=== PATIENT | male | born 1980 | race Caucasian/White ===

== ENCOUNTER 2023-05-27 21:07 | Inpatient (IN) ==
[~2023-05-27 21:07] MED LIST: KETAMINE HCL INJ 50 MG/ML 10 ML VIAL IV ONE; MIDAZOLAM HCL 1 MG/ML 2ML VIAL IV ONE; RAPID SEQUENCE INDUCTION BAG ONE
[2023-05-27] MEDS ORDERED: SODIUM CHLORIDE 0.9% 1,000 ML IV ONE (21:22)
--- NOTE | 2023-05-27 21:25 | Emergency Department Note ---
Impression & Plan Altered mental status, Alcohol intoxication, Agitation, Facial fracture, Elevated troponin I level ED Provider Note Provider: Alan Bell MD DATE OF SERVICE: 05/27/2023 CHIEF COMPLAINT: Agitation, altered HISTORY OF PRESENT ILLNESS: Patient is a approximately 43-year-old gentleman unknown significant history presenting via ambulance today for altered mental status. Patient upon arrival is acutely agitated being held down by EMS and police. Received call prior to arrival from EMS. Report the patient evidently walked down the street stabbed his dog to and then collapsed to the ground. For fire he was minimally responsive received 4 mg of Narcan. After this the patient became acutely agitated. Received 4 mg of benzodiazepine prior to arrival with limited improvement and he was in physical hold in handcuffs due to his acute agitation. Swearing out to the room and trying to jump up off the bed. Swears at me and does not provide any significant history. He is covered in blood but EMS states this is related to his dog that he stabbed to prior to arrival. There is report the patient may have had alcohol and possibly mushroom or other drugs involved. Patient again unable provide me additional history. He is struggling being held down with backboard in place. Questionable if he had fallen today. Did later receive a call from EMS that wrong medication administered to the patient and he did not receive Ativan prior to arrival but actually 4 mg of Dilaudid IM. May explain the lack of effect for the patient and his agitation. PAST MEDICAL HISTORY: Unable obtain due to the patient's altered mental status and acute agitation MEDICATIONS:Unable obtain due to the patient's altered mental status and acute agitation FMH:Unable obtain due to the patient's altered mental status and acute agitation SOCIAL HISTORY:Unable obtain due to the patient's altered mental status and acute agitation PHYSICAL EXAM: GENERAL: Patient being held down acutely struggling against handcuffs and backboard yelling "bitch" Head: Patient with dried blood on his face or right nasal airway in place. EYES: No injection, discharge or icterus. Pupils bilaterally reactive and dilated 6 mm bilaterally. NECK: Trachea midline. Supple. ENT: Mucous membranes pink and moist. No obvious oropharyngeal injury with poor dentition. LUNGS: Airway patent. No retractions. Breath sounds clear with good air entry bilaterally. HEART: Regular rate and rhythm. No chest wall tenderness ABDOMEN: Soft and non-tender, without guarding or rebound. SKIN: Acyanotic, warm, dry, without rashes EXTREMITIES: Severe deformities. Being held down with handcuffs in place with some irritation and redness at the wrist. NEUROLOGICAL: Struggling to move against all extremities. When asked questions answers profanities. EK bpm sinus rhythm first-degree AV block. No acute ST segment elevation or depression with a QTc of 445. CONTINUOUS CARDIAC MONITORING: was ordered and showed a heart rate of 60s-130s bpm in normal sinus rhythm to sinus tachycardia Patient's laboratory studies and imaging reviewed. Differential includes Mood disorder, infection, hypoglycemia, electrolyte abnormalities, cardiac sources, intracerebral event, toxicologic, trauma, neurologic, as well as other pathologies. IMPRESSION/MEDICAL DECISION MAKING: Patient acutely agitated and cries upon arrival struggling and violent. Per patient safety due to his aggression agitation as well as staff safety he was sedated and restrained. Initially gave 200 mg of IM ketamine into the left deltoid. IV access obtained. Patient given additional 100 mg of IV ketamine shortly thereafter for control. Transitioned from handcuffs and backboard to stretcher and hard restrained. Patient is calming. R nare RETAIL AIDE airway placed by ems removed. Unable provide any significant history. Smell of alcohol on his person and question of alcohol or other drugs may be at play. Covered in some dried blood on his face and his right calf but no evidence of significant wound questions is more related to the reported stabbing event of his dog earlier. Did respond to Narcan by report earlier as well possibly some opioid component. UDS and drug screen sent. Blood work was sent. Diaz catheter placed. Taken for CT noncontrast trauma hairston scan to look for any possible traumatic injuries or possible head injury given the limited history and his altered mental status upon arrival. Close monitoring of the patient with cardiac monitoring including end-tidal and pulse ox were maintained due to his sedation requirement. Urinalysis contaminated without signs of infection. UDS is returned positive for opiates only. Negative aspirin and Tylenol levels. Negative COVID testing. Leukocytosis I believe likely reactive and I doubt this is infectious more in the setting of his acute agitation. CK mildly elevated this time is expected probably continue to rise given his agitation. High sensitive troponin minimally elevated likely more related to exertion/agitation and demand than true ACS. EKG obtained without evidence of STEMI. Mild anion gap believe likely would have some lactate elevation but no severe electrolyte abnormality. Given some fluid hydration and some IV fluid hydration maintenance ordered. Received some additional Versed for sedation as the ketamine began to wear. End-tidal usage and O2 supplementation as needed. Did discuss with the RETAIL AIDE from the ICU given his sedation requirements. CT imaging returned without cervical spine fracture but facial CT with reported evidence of maxillary sinus and a left nondisplaced zygomatic arch fracture. Hospitalist was contacted for admission. Patient closely monitored and made various attempts at trying to discontinue restraint as possible. Repeat troponin does show increase again likely demand from his severe agitation today. Again being admitted for continued monitoring. DIAGNOSIS: Acute agitation, alcohol intoxication, altered mental status, facial fractures, elevated troponin DISPOSITION: Hospitalist will evaluate Critical Care I have personally spent 95 minutes of critical care time in the direct management of this patient. This includes bedside care, interpretation of diagnostic studies, and testing, discussion with consultants, patient, and family members, and other required patient management activities. These 95 minutes is in excess of all separately billable procedures. Past Med/Surg History Social History Smoking Status: Unknown if ever smoked Preferred Language: Jamaican Results & Data (ED) Vital Signs Vital Signs - 24 hr 05/27/23 21:17 05/27/23 21:19 05/27/23 21:20 Pulse Rate 129 H 135 H 119 H Pulse Rate [Finger] Pulse Rate from SpO2 Sensor 123 H 119 H Respiratory Rate 32 H 29 H 25 H Blood Pressure 161/110 H Blood Pressure [Right Arm] Blood Pressure Mean 127 Blood Pressure Mean [Right Arm] Pulse Oximetry 98 91 99 Oxygen Delivery Method Room Air Oxygen Flow Rate Sepsis Recent Fever Within 48 Hours No Sepsis New/Unexplained Change in Mental Status Yes Sepsis Action Taken by Nursing Physician Notified End-Tidal CO2 31 30 Oxygen Flow Rate - Titration Pulse Oximetry Post Tiitration 05/27/23 21:32 05/27/23 21:39 05/27/23 21:39 Pulse Rate 93 H 86 Pulse Rate [Finger] Pulse Rate from SpO2 Sensor 86 Respiratory Rate 19 Blood Pressure 135/83 Blood Pressure [Right Arm] Blood Pressure Mean 96 Blood Pressure Mean [Right Arm] Pulse Oximetry 99 Oxygen Delivery Method Oxygen Flow Rate Sepsis Recent Fever Within 48 Hours Sepsis New/Unexplained Change in Mental Status Sepsis Action Taken by Nursing End-Tidal CO2 29 Oxygen Flow Rate - Titration Pulse Oximetry Post Tiitration 05/27/23 21:40 05/27/23 21:41 05/27/23 21:50 Pulse Rate 87 83 Pulse Rate [Finger] Pulse Rate from SpO2 Sensor 87 83 Respiratory Rate 30 H 27 H Blood Pressure Blood Pressure [Right Arm] Blood Pressure Mean Blood Pressure Mean [Right Arm] Pulse Oximetry 99 91 99 Oxygen Delivery Method Room Air Nasal Cannula Oxygen Flow Rate 0 Sepsis Recent Fever Within 48 Hours Sepsis New/Unexplained Change in Mental Status Sepsis Action Taken by Nursing End-Tidal CO2 30 25 Oxygen Flow Rate - Titration 4 Pulse Oximetry Post Tiitration 100 05/27/23 22:00 05/27/23 22:00 05/27/23 22:00 Pulse Rate 83 Pulse Rate [Finger] 81 Pulse Rate from SpO2 Sensor 83 Respiratory Rate 24 10 L Blood Pressure 119/63 Blood Pressure [Right Arm] 119/63 Blood Pressure Mean 85 Blood Pressure Mean [Right Arm] 81 Pulse Oximetry 100 100 Oxygen Delivery Method Nasal Cannula Oxygen Flow Rate 4 Sepsis Recent Fever Within 48 Hours Sepsis New/Unexplained Change in Mental Status Sepsis Action Taken by Nursing End-Tidal CO2 32 Oxygen Flow Rate - Titration Pulse Oximetry Post Tiitration 05/27/23 22:00 05/27/23 22:10 05/27/23 22:20 Pulse Rate 111 H Pulse Rate [Finger] Pulse Rate from SpO2 Sensor 108 H 112 H Respiratory Rate 24 Blood Pressure 119/63 Blood Pressure [Right Arm] Blood Pressure Mean 85 Blood Pressure Mean [Right Arm] Pulse Oximetry 98 91 Oxygen Delivery Method Oxygen Flow Rate Sepsis Recent Fever Within 48 Hours Sepsis New/Unexplained Change in Mental Status Sepsis Action Taken by Nursing End-Tidal CO2 32 Oxygen Flow Rate - Titration Pulse Oximetry Post Tiitration 05/27/23 22:30 05/27/23 22:31 05/27/23 22:31 Pulse Rate Pulse Rate [Finger] Pulse Rate from SpO2 Sensor 120 H 98 H Respiratory Rate Blood Pressure 172/84 H Blood Pressure [Right Arm] Blood Pressure Mean 134 Blood Pressure Mean [Right Arm] Pulse Oximetry 76 L 88 L Oxygen Delivery Method Oxygen Flow Rate Sepsis Recent Fever Within 48 Hours Sepsis New/Unexplained Change in Mental Status Sepsis Action Taken by Nursing End-Tidal CO2 Oxygen Flow Rate - Titration Pulse Oximetry Post Tiitration 05/27/23 22:40 05/27/23 22:50 05/27/23 22:50 Pulse Rate 83 79 Pulse Rate [Finger] Pulse Rate from SpO2 Sensor 83 79 Respiratory Rate 13 14 Blood Pressure 136/77 Blood Pressure [Right Arm] Blood Pressure Mean 95 Blood Pressure Mean [Right Arm] Pulse Oximetry 96 97 Oxygen Delivery Method Oxygen Flow Rate Sepsis Recent Fever Within 48 Hours Sepsis New/Unexplained Change in Mental Status Sepsis Action Taken by Nursing End-Tidal CO2 21 20 Oxygen Flow Rate - Titration Pulse Oximetry Post Tiitration 05/27/23 23:00 05/27/23 23:00 05/27/23 23:10 Pulse Rate 78 94 H Pulse Rate [Finger] Pulse Rate from SpO2 Sensor 78 94 H Respiratory Rate 20 12 Blood Pressure 147/87 H Blood Pressure [Right Arm] Blood Pressure Mean 105 Blood Pressure Mean [Right Arm] Pulse Oximetry 97 98 Oxygen Delivery Method Oxygen Flow Rate Sepsis Recent Fever Within 48 Hours Sepsis New/Unexplained Change in Mental Status Sepsis Action Taken by Nursing End-Tidal CO2 18 27 Oxygen Flow Rate - Titration Pulse Oximetry Post Tiitration Laboratory Data 05/27/23 21:12 05/27/23 21:12 Lab Results 05/27/23 05/27/23 05/27/23 Range/Units 21:12 21:25 21:46 WBC 23.49 H (4.8-10.8) K/ul RBC 4.84 (4.70-6.10) M/uL Hgb 14.6 (14.0-18.0) g/dl Hct 43.0 (42.0-52.0) % MCV 88.8 (80.0-100.0) fL MCH 30.2 (25.0-34.0) pg MCHC 34.0 (32.0-36.0) g/dL RDW Std Deviation 40.5 (36.4-46.3) fL RDW Coeff of Aida 12.4 (11.5-14.5) % Plt Count 337 (130-400) K/uL MPV 9.9 (9.4-12.4) fL Immature Gran % (Auto) 0.9 % Neut % (Auto) 72.8 % Lymph % (Auto) 20.7 % [place] % (Auto) 4.1 % Eos % (Auto) 0.9 % Baso % (Auto) 0.6 % Neut # (Auto) 17.09 H (1.40-6.50) K/uL Lymph # (Auto) 4.87 H (1.20-3.40) K/uL [place] # (Auto) 0.97 H (0.11-0.59) K/uL Eos # (Auto) 0.22 (0.00-0.50) K/uL Baso # (Auto) 0.13 (0.00-0.20) K/uL Immature Gran # (Auto) 0.21 H (0.01-0.20) K/uL PT 10.9 (9.0-12.0) Seconds INR 1.0 (0.9-1.1) Sodium 137 (136-145) mmol/L Potassium 3.7 (3.5-5.1) mmol/L Chloride 99 (98-107) mmol/L Carbon Dioxide 19 L (21-32) mmol/L Anion Gap 19 H (3-11) BUN 17 (6-23) mg/dl Creatinine 1.30 (0.6-1.4) mg/dl Est Cr Clr Drug Dosing 90.1 ml/min Est GFR ( Amer) 78.6 ml/min Est GFR (Non-Af Amer) 67.8 ml/min BUN/Creatinine Ratio 13.1 (10-20) Glucose 123 H (70-99(Fasting)) mg/dl Calcium 9.0 (8.6-10.3) mg/dl Magnesium 2.4 (1.7-2.4) mg/dl Total Bilirubin 0.9 (0.2-1.0) mg/dl AST 55 H (13-39) U/L ALT 41 (7-52) U/L Alkaline Phosphatase 83 (34-104) U/L Total Creatine Kinase 678 H (30-223) U/L Troponin I High Sens 29.5 H (0-20) pg/ml Total Protein 7.1 (6.0-8.3) gm/dl Albumin 4.5 (3.4-5.0) gm/dl Globulin 2.6 (2.5-4.0) gm/dl Albumin/Globulin Ratio 1.7 (0.9-2) Lipase 27 (11-82) U/L Urine Color Yellow Urine Appearance Clear (Clear) Urine pH 5.5 (4.5-7.5) Ur Specific [place] 1.019 (1.000-1.030) Urine Protein 2+ H (Negative) Urine Glucose (UA) 1+ H (Negative) Urine Ketones Trace H (Negative) Urine Blood 2+ H (Negative) Urine Nitrite Negative (Negative) Urine Bilirubin Negative (Negative) Urine Urobilinogen Negative (Negative) Ur Leukocyte Esterase Negative (Negative) Urine WBC (Auto) 5-10 H (0-5) /hpf Urine RBC (Auto) 5-10 H (0-4) /hpf U Hyaline Cast (Auto) 10-30 H (0-5) /lpf U Epithel Cells (Auto) >30 H (0-5) /lpf Urine Bacteria (Auto) Negative (Negative) Salicylates < 3.0 L (3.0-30) mg/dl Urine Opiates Screen Pos H (Neg) Ur Methadone, Qual Neg (Neg) Acetaminophen < 3 L (10-30) ug/ml Urine Barbiturates Neg (Neg) Ur Phencyclidine (PCP) Neg (Neg) U Amphetamin/Meth Scrn Neg (Neg) MDMA (Ecstasy) Screen Neg (Neg) U Benzodiazepines Scrn Neg (Neg) Ur Cocaine Metabolite Neg (Neg) U Marijuana (THC) Screen Neg (Neg) Ethyl Alcohol mg/dL 162.9 H (<10.0) mg/dl SARS-CoV-2, RNA, NAAT NEGATIVE (NEGATIVE) Administered Medications Parenteral Electrolytes (Plasma-Lyte A Ph 7.4) 1,000 mls @ 125 mls/hr IV .Q8H KENAN Stop: 06/26/23 23:29 Last Admin: 05/27/23 23:32 Dose: 125 mls/hr Documented By: AB Discontinued Medications Sodium Chloride (Nss) 500 mls @ 999 mls/hr IV .Q31M KENAN Stop: 05/27/23 22:00 Last Infusion: 05/27/23 22:34 Dose: Infused Documented By: Admin: 05/27/23 21:46 Dose: 999 mls/hr Documented By: VIOLET Sodium Chloride (Nss) 1,000 mls @ 999 mls/hr IV .Q1H1M ONE Stop: 05/27/23 22:22 Last Admin: 05/27/23 21:46 Dose: 999 mls/hr Documented By: VIOLET Midazolam HCl (Midazolam Hcl 5 Mg/Ml 2ml Vial) 2 mg IV ONCE ONE Stop: 05/27/23 22:28 Last Admin: 05/27/23 22:27 Dose: 2 mg Documented By: VIOLET Miscellaneous (Rapid Sequence Induction Bag) Confirm Administered Dose 1 each N/A .STK-MED ONE Stop: 05/27/23 21:00 Last Admin: 05/27/23 23:36 Dose: Not Given Documented By: AB Imaging Data Radiologist's Impression: Cervical Spine CT 05/27/23 21:19 Exam(s): CT C SPINE EXAM: CT Cervical Spine Without Intravenous Contrast CLINICAL HISTORY: Reason for exam: ams, ?fall. TECHNIQUE: Axial computed tomography images of the cervical spine without intravenous contrast. CTDI is 26.96 mGy and DLP is 765.4 mGy-cm. Automated exposure control was utilized for the study. A dose lowering technique was utilized adhering to the principles of ALARA. COMPARISON: No relevant prior studies available. FINDINGS: The vertebral body heights are maintained. The craniocervical junction is intact. The atlanto-dens interval is maintained. The dens is intact. There is no spondylolisthesis. Multilevel cervical spondylosis and degenerative disc disease. Straightening of the cervical lordosis. The unenhanced neck soft tissues are grossly unremarkable. The visualized lung apices are grossly clear. IMPRESSION: No acute fracture or subluxation of the cervical spine. Electronically signed by: Ronnie Sotelo MD 05/27/23 23:[address] 05/27/23 21:19 Exam(s): CT FACIAL Without Contrast EXAM: CT Maxillofacial Without Intravenous Contrast CLINICAL HISTORY: Reason for exam: ams, ?fall. TECHNIQUE: Axial computed tomography images of the face without intravenous contrast. CTDI is 36.55 mGy and DLP is 624.41 mGy-cm. Automated exposure control was utilized for the study. A dose lowering technique was utilized adhering to the principles of ALARA. COMPARISON: No relevant prior studies available. FINDINGS: The mandible is intact. Intact maxillary alveolus. The orbital rims and floors are intact. The intraorbital contents are grossly unremarkable. Mildly depressed fracture of the anterior wall of the left maxillary sinus. Nondisplaced fracture of the posterior wall of the left maxillary sinus. Nondisplaced fracture of the left zygomatic arch. Intact nasal bones, nasal septum, and maxillary spines. Paranasal sinus mucosal thickening. IMPRESSION: Mildly depressed fracture of the anterior wall of the left maxillary sinus. Nondisplaced fracture of the posterior wall of the left maxillary sinus. Nondisplaced fracture of the left zygomatic arch. Electronically signed by: Ronnie Sotelo MD 05/27/23 23:[address] 05/27/23 21:19 Exam(s): CT HEAD Without Contrast EXAM: CT Head Without Intravenous Contrast CLINICAL HISTORY: Reason for exam: ams. TECHNIQUE: Axial computed tomography images of the head/brain without intravenous contrast. CTDI is 36.55 mGy and DLP is 624.41 mGy-cm. Automated exposure control was utilized for the study. A dose lowering technique was utilized adhering to the principles of ALARA. COMPARISON: No relevant prior studies available. FINDINGS: No acute intracranial hemorrhage. No midline shift or mass effect. The territorial coates-white matter differentiation is maintained throughout. The ventricles and sulci are commensurate with age. The visualized orbits appear grossly unremarkable. The calvarium is intact. The visualized paranasal sinuses and mastoid air cells are grossly clear. Left-sided facial bone fractures, correlate with concomitant maxillofacial CT scan. IMPRESSION: No acute intracranial hemorrhage, midline shift, or mass effect. Left-sided facial bone fractures, correlate with concomitant maxillofacial CT scan. Electronically signed by: Ronnie Sotelo MD 05/27/23 23:45 PM Discharge Plan Visit Data Chief Complaint: Altered Mental Status Stated Complaint: ALCOHOL POSSIBLE OTHER DRUGS ED Provider: Alan Bell Discharge Problem: Altered mental status, Alcohol intoxication, Agitation, Facial fracture, Elevated troponin I level Patient Disposition: Being Evaluated by Hospitalist Forms Stand Alone Forms: [facility] Referrals Referrals: PCP,NO [Primary Care Provider] - Discharge Problem: Altered mental status Qualifiers: Altered mental status type: delirium Qualified Code(s): R41.0 - Disorientation, unspecified Alcohol intoxication Qualifiers: Complication of substance-induced condition: with delirium Qualified Code(s): F 10.921 - Alcohol use, unspecified with intoxication delirium
[2023-05-27] MEDS ORDERED: SODIUM CHLORIDE 0.9% 500 ML IV SCH (21:30)
[2023-05-27 21:52] LABS: Appearance Urine Clear (Clear); Bacteria Urine Automated Negative (Negative); Bilirubin Urine Negative (Negative); Blood Urine 2+ (Negative); Color Urine Yellow; Epithelial Cell Urine Auto >30 /lpf (0-5); Glucose Urine UA 1+ (Negative); Ketones Urine Trace (Negative); Leukocyte Esterase Urine Negative (Negative); Nitrite Urine Negative (Negative); Protein Urine 2+ (Negative); Specific Gravity Urine 1.019 (1.000-1.030); Urobilinogen Urine Negative (Negative); pH Urine 5.5 (4.5-7.5)
[2023-05-27 22:01] LABS: Amphetamines+Metham, Urine Neg (Neg); Barbiturates, Urine Neg (Neg); Benzodiazepine, Urine Neg (Neg); Cocaine, Urine Neg (Neg); MDMA (Ecstacy), Urine Neg (Neg); Marijuana, Urine Neg (Neg); Methadone, Urine Neg (Neg); Opiate, Urine Pos (Neg); Phencyclidine, Urine Neg (Neg)
[2023-05-27 22:09] LABS: Acetaminophen < 3 ug/ml (10-30); Salicylate < 3.0 mg/dl (3.0-30)
[2023-05-27 22:17] LABS: Basophils # (auto) 0.13 K/uL (0.00-0.20); Basophils % (auto) 0.6 %; Eosinophils # (auto) 0.22 K/uL (0.00-0.50); Eosinophils % (auto) 0.9 %; Hemoglobin 14.6 g/dl (14.0-18.0); Immature Granulocytes # (auto) 0.21 K/uL (0.01-0.20); Immature Granulocytes % (auto) 0.9 %; Lymphocytes # (auto) 4.87 K/uL (1.20-3.40); Lymphocytes % (auto) 20.7 %; Mean Corpuscular Hemoglobin 30.2 pg (25.0-34.0); Mean Corpuscular Volume 88.8 fL (80.0-100.0); Mean Platelet Volume 9.9 fL (9.4-12.4); Monocytes # (auto) 0.97 K/uL (0.11-0.59); Monocytes % (auto) 4.1 %; Neutrophils # (auto) 17.09 K/uL (1.40-6.50); Neutrophils % (auto) 72.8 %; Platelet Count 337 K/uL (130-400); RDW Coefficient of Variation 12.4 % (11.5-14.5); RDW Standard Deviation 40.5 fL (36.4-46.3); Red Blood Count 4.84 M/uL (4.70-6.10); White Blood Count 23.49 K/ul (4.8-10.8)
[2023-05-27 22:22] LABS: Albumin Globulin Ratio 1.7 (0.9-2); Albumin Level 4.5 gm/dl (3.4-5.0); BUN Creatinine Ratio 13.1 (10-20); Bilirubin,Total 0.9 mg/dl (0.2-1.0); Creatinine Clr Calc Pharmacy 90.1 ml/min; Est GFR (African American) 78.6 ml/min; Est GFR (Non-African American) 67.8 ml/min; Globulin 2.6 gm/dl (2.5-4.0); Magnesium 2.4 mg/dl (1.7-2.4); Potassium 3.7 mmol/L (3.5-5.1); Total Protein 7.1 gm/dl (6.0-8.3)
[2023-05-27] MEDS ORDERED: MIDAZOLAM HCL 5 MG/ML 2ML VIAL IV ONE (22:27)
[2023-05-27 22:28] LABS: Troponin I High Sensitivity 29.5 pg/ml (0-20)
[2023-05-27 22:37] LABS: Prothrombin Time 10.9 Seconds (9.0-12.0)
[2023-05-27] MEDS ORDERED: PLASMA-LYTE A 1,000 ML IV SCH (23:30)
--- NOTE | 2023-05-27 23:45 | CT Scan Report ---
Exam(s): CT FACIAL Without Contrast EXAM: CT Maxillofacial Without Intravenous Contrast CLINICAL HISTORY: Reason for exam: ams, ?fall. TECHNIQUE: Axial computed tomography images of the face without intravenous contrast. CTDI is 36.55 mGy and DLP is 624.41 mGy-cm. Automated exposure control was utilized for the study. A dose lowering technique was utilized adhering to the principles of ALARA. COMPARISON: No relevant prior studies available. FINDINGS: The mandible is intact. Intact maxillary alveolus. The orbital rims and floors are intact. The intraorbital contents are grossly unremarkable. Mildly depressed fracture of the anterior wall of the left maxillary sinus. Nondisplaced fracture of the posterior wall of the left maxillary sinus. Nondisplaced fracture of the left zygomatic arch. Intact nasal bones, nasal septum, and maxillary spines. Paranasal sinus mucosal thickening. IMPRESSION: Mildly depressed fracture of the anterior wall of the left maxillary sinus. Nondisplaced fracture of the posterior wall of the left maxillary sinus. Nondisplaced fracture of the left zygomatic arch. Electronically signed by: Ronnie Sotelo MD 05/27/23 23:44 PM
--- NOTE | 2023-05-27 23:46 | CT Scan Report ---
Exam(s): CT HEAD Without Contrast EXAM: CT Head Without Intravenous Contrast CLINICAL HISTORY: Reason for exam: ams. TECHNIQUE: Axial computed tomography images of the head/brain without intravenous contrast. CTDI is 36.55 mGy and DLP is 624.41 mGy-cm. Automated exposure control was utilized for the study. A dose lowering technique was utilized adhering to the principles of ALARA. COMPARISON: No relevant prior studies available. FINDINGS: No acute intracranial hemorrhage. No midline shift or mass effect. The territorial coates-white matter differentiation is maintained throughout. The ventricles and sulci are commensurate with age. The visualized orbits appear grossly unremarkable. The calvarium is intact. The visualized paranasal sinuses and mastoid air cells are grossly clear. Left-sided facial bone fractures, correlate with concomitant maxillofacial CT scan. IMPRESSION: No acute intracranial hemorrhage, midline shift, or mass effect. Left-sided facial bone fractures, correlate with concomitant maxillofacial CT scan. Electronically signed by: Ronnie Sotelo MD 05/27/23 23:45 PM
--- NOTE | 2023-05-27 23:49 | CT Scan Report ---
Exam(s): CT C SPINE EXAM: CT Cervical Spine Without Intravenous Contrast CLINICAL HISTORY: Reason for exam: ams, ?fall. TECHNIQUE: Axial computed tomography images of the cervical spine without intravenous contrast. CTDI is 26.96 mGy and DLP is 765.4 mGy-cm. Automated exposure control was utilized for the study. A dose lowering technique was utilized adhering to the principles of ALARA. COMPARISON: No relevant prior studies available. FINDINGS: The vertebral body heights are maintained. The craniocervical junction is intact. The atlanto-dens interval is maintained. The dens is intact. There is no spondylolisthesis. Multilevel cervical spondylosis and degenerative disc disease. Straightening of the cervical lordosis. The unenhanced neck soft tissues are grossly unremarkable. The visualized lung apices are grossly clear. IMPRESSION: No acute fracture or subluxation of the cervical spine. Electronically signed by: Ronnie Sotelo MD 05/27/23 23:48 PM
--- NOTE | 2023-05-28 | CT Scan Report ---
Exam(s): CT ABDOMEN + PELVIS Without Contrast EXAM: CT Abdomen and Pelvis Without Intravenous Contrast CLINICAL HISTORY: Reason for exam: ams, ?fall. TECHNIQUE: Axial computed tomography images of the abdomen and pelvis without intravenous contrast. CTDI is 32.94 mGy and DLP is 1739.1 mGy-cm. Automated exposure control was utilized for the study. A dose lowering technique was utilized adhering to the principles of ALARA. COMPARISON: No relevant prior studies available. FINDINGS: Lung bases: Unremarkable. No mass. No consolidation. ABDOMEN: Liver: Unremarkable. Gallbladder and bile ducts: Prior cholecystectomy with mild CBD dilatation. Pancreas: Unremarkable. No ductal dilation. Spleen: Unremarkable. No splenomegaly. Adrenals: Unremarkable. No mass. Kidneys and ureters: Unremarkable. No obstructing stones. No hydronephrosis. Stomach and bowel: Unremarkable. No obstruction. No mucosal thickening. PELVIS: Appendix: No findings to suggest acute appendicitis. Bladder: Diaz catheter within the urinary bladder. No stones. Reproductive: Unremarkable as visualized. ABDOMEN and PELVIS: Intraperitoneal space: Unremarkable. No free air. No significant fluid collection. Bones/joints: Moderate degenerative changes at L4/L5 and L5/S1. No acute fracture. No dislocation. Soft tissues: Unremarkable. Vasculature: Unremarkable. No abdominal aortic aneurysm. Lymph nodes: Unremarkable. No enlarged lymph nodes. IMPRESSION: No acute findings in the abdomen or pelvis. Electronically signed by: Mary Ellen Mckenzie MD 05/28/23 00:00 AM
--- NOTE | 2023-05-28 00:03 | CT Scan Report ---
Exam(s): CT CHEST Without Contrast EXAM: CT Chest Without Intravenous Contrast CLINICAL HISTORY: Reason for exam: AMS, fall?. TECHNIQUE: Axial computed tomography images of the chest without intravenous contrast. CTDI is 32.94 mGy and DLP is 1739.1 mGy-cm. Automated exposure control was utilized for the study. A dose lowering technique was utilized adhering to the principles of ALARA. COMPARISON: No relevant prior studies available. FINDINGS: Lungs: Unremarkable. No mass. No consolidation. Pleural space: Unremarkable. No pneumothorax. No significant effusion. Heart: Unremarkable. No cardiomegaly. No significant pericardial effusion. No significant coronary artery calcifications. Thyroid: Left jessica-thyroidectomy. Bones/joints: Unremarkable. No acute fracture. No dislocation. Soft tissues: Unremarkable. Vasculature: Unremarkable. No thoracic aortic aneurysm. Lymph nodes: Unremarkable. No enlarged lymph nodes. Gallbladder and bile ducts: Cholecystectomy clips. IMPRESSION: No acute findings in the chest. Electronically signed by: Ronnie Sotelo MD 05/28/23 00:02 AM
[2023-05-28] MEDS ORDERED: HYDROmorphone INJ 2 MG/ML SYR/VIAL ONE (02:10)
[2023-05-28] MEDS ORDERED: LORazepam 1 MG TAB PO STA (05:32)
--- NOTE | 2023-05-28 05:42 | History & Physical Report ---
Date of Service May 28, 2023 Assessment & Plan (1) Agitation: Plan: 43-year-old male history of insomnia as per patient was brought in because of altered mental status. Seems patient walked on the street and stabbed his dog to and then collapsed to the ground. EMS gave him 4 mg of Narcan after that patient became acutely agitated. Then was given 4 mg of benzodiazepine and is brought in physical hold with handcuffs due to acute agitation. In the ER he also was very agitated. He was given couple of doses of ketamine in the ER and placed in restraints. 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 DVT prophylaxis SCDs for now Disposition Telemetry floor Full code History of Present Illness Chief Complaint: Agitation. Alcoholism and drug abuse Primary Care Provider: NO PCP 43-year-old male history of insomnia as per patient was brought in because of altered mental status. Seems patient walked on the street and stabbed his dog to and then collapsed to the ground. EMS gave him 4 mg of Narcan after that patient became acutely agitated. Then was given 4 mg of benzodiazepine and is brought in physical hold in hand cuffs due to acute agitation. In the ER he also was very agitated. He was given couple of doses of ketamine in the ER and placed in restraints.Imaging studies are okay. Patient currently alert and awake and oriented. Patient states he drank 12 beers and had mushroom for drugs. He states he did not do mushrooms for many years. Not doing any other drugs as per patient. He is on buprenorphine as is used to do kratom as per patient. Says his Diaz catheter is irritating and wants to take it out. Denies any headache currently. Vision is okay. No cough. No chest pain or shortness of breath. No nausea. No abdominal pain. Currently resting comfortably. Past medical history as mentioned above Past surgical history. Denies any surgeries Social history. Denies smoking. Says drinks alcohol couple of times a week. States once in a while uses drugs like mushrooms Family history. Denies any family history. Allergies Allergy/AdvReac Type Severity Reaction Status Date / Time No Known Allergies Allergy Unverified 05/28/23 00:24 Home Medications Medication Instructions Recorded Confirmed Type buprenorphine HCl 8 mg sublingual 16 mg sublingual DAILY 05/28/23 05/28/23 History tablet mirtazapine 15 mg tablet 15 mg PO DAILY 05/28/23 05/28/23 History sildenafil 100 mg tablet 50 - 100 mg PO DIRECTED 05/28/23 05/28/23 History Past Med/Surg History Social History Smoking Status: Current some day smoker Tobacco Type: Cigarettes Hx Alcohol Use: Yes Alcohol type: beer Preferred Language: [place] Communication Ability: Effective Test And Turn Up Technician Required: No Beliefs That Will Affect Care: None Current Living Situation: Significant Other Feels Safe at Home: Yes Review of Systems Review of Systems: All systems reviewed & are unremarkable except as noted in HPI & below Physical Exam Physical Exam: General- Not in acute distress Head- atraumatic Eyes- PERRL. ENT- oropharynx clear Neck- supple, no JVD. Lungs- clear to auscultation, no wheezing or crackles. Heart- regular rhythm; no murmur, no gallop. Abdomen- normal bowel sounds, soft, nontender, no distension. Extremities- no pretibial edema, no erythema seen. Neuro- alert, oriented x 3; PERRL,no facial palsy; no dysarthria; obeys commands , moves extremities. Skin- warm & dry Results & Data Results & Data Vital Signs (Past 12 Hours) Vital Signs Pulse Pulse Resp BP BP Pulse Ox O2 Del Method 05/28/23 05:00 79 16 138/79 95 Room Air 05/28/23 04:00 71 18 119/70 93 Room Air 05/28/23 02:50 75 16 97 05/28/23 02:44 142/85 H 05/28/23 02:44 81 19 95 05/28/23 02:40 73 20 96 05/28/23 02:30 78 23 98 05/28/23 02:20 73 20 96 05/28/23 02:10 74 96 05/28/23 02:00 78 97 05/28/23 02:00 140/73 05/28/23 02:00 140/73 05/28/23 01:50 76 97 05/28/23 01:40 83 96 05/28/23 01:32 72 05/28/23 01:30 109/70 05/28/23 01:30 69 96 05/28/23 01:20 76 97 05/28/23 01:10 72 96 05/28/23 01:00 78 96 05/28/23 01:00 108/76 05/28/23 00:50 78 98 05/28/23 00:40 84 97 05/28/23 00:30 123/75 05/28/23 00:30 74 97 05/28/23 00:20 75 95 05/28/23 00:10 84 95 05/28/23 00:00 150/91 H 05/28/23 00:00 72 96 05/27/23 23:50 90 92 05/27/23 23:40 96 05/27/23 23:30 82 96 05/27/23 23:30 152/95 H 05/27/23 23:26 150/92 H 05/27/23 23:26 88 95 05/27/23 23:20 94 H 96 05/27/23 23:10 94 H 12 98 05/27/23 23:00 147/87 H 05/27/23 23:00 78 20 97 05/27/23 22:50 136/77 05/27/23 22:50 79 14 97 05/27/23 22:40 83 13 96 05/27/23 22:31 172/84 H 05/27/23 22:31 88 L 05/27/23 22:30 76 L 05/27/23 22:20 91 05/27/23 22:10 111 H 24 98 05/27/23 22:00 119/63 05/27/23 22:00 119/63 05/27/23 22:00 83 10 L 100 05/27/23 22:00 81 24 119/63 100 Nasal Cannula 05/27/23 21:50 83 27 H 99 05/27/23 21:41 91 Room Air, Nasal Cannula 05/27/23 21:40 87 30 H 99 05/27/23 21:39 135/83 05/27/23 21:39 86 19 99 05/27/23 21:32 93 H 05/27/23 21:20 119 H 25 H 99 05/27/23 21:19 135 H 29 H 161/110 H 91 Room Air 05/27/23 21:17 129 H 32 H 98 O2 Flow Rate 05/28/23 05:00 05/28/23 04:00 05/28/23 02:50 05/28/23 02:44 05/28/23 02:44 05/28/23 02:40 05/28/23 02:30 05/28/23 02:20 05/28/23 02:10 05/28/23 02:00 05/28/23 02:00 05/28/23 02:00 05/28/23 01:50 05/28/23 01:40 05/28/23 01:32 05/28/23 01:30 05/28/23 01:30 05/28/23 01:20 05/28/23 01:10 05/28/23 01:00 05/28/23 01:00 05/28/23 00:50 05/28/23 00:40 05/28/23 00:30 05/28/23 00:30 05/28/23 00:20 05/28/23 00:10 05/28/23 00:00 05/28/23 00:00 05/27/23 23:50 05/27/23 23:40 05/27/23 23:30 05/27/23 23:30 05/27/23 23:26 05/27/23 23:26 05/27/23 23:20 05/27/23 23:10 05/27/23 23:00 05/27/23 23:00 05/27/23 22:50 05/27/23 22:50 05/27/23 22:40 05/27/23 22:31 05/27/23 22:31 05/27/23 22:30 05/27/23 22:20 05/27/23 22:10 05/27/23 22:00 05/27/23 22:00 05/27/23 22:00 05/27/23 22:00 4 05/27/23 21:50 05/27/23 21:41 0 05/27/23 21:40 05/27/23 21:39 05/27/23 21:39 05/27/23 21:32 05/27/23 21:20 05/27/23 21:19 05/27/23 21:17 Diagnostic Findings Laboratory Results WBC 23.49 K/ul (4.8-10.8) H 05/27/23 21:12 RBC 4.84 M/uL (4.70-6.10) 05/27/23 21:12 Hgb 14.6 g/dl (14.0-18.0) 05/27/23 21:12 Hct 43.0 % (42.0-52.0) 05/27/23 21:12 MCV 88.8 fL (80.0-100.0) 05/27/23 21:12 MCH 30.2 pg (25.0-34.0) 05/27/23 21:12 MCHC 34.0 g/dL (32.0-36.0) 05/27/23 21:12 RDW Std Deviation 40.5 fL (36.4-46.3) 05/27/23 21:12 RDW Coeff of Aida 12.4 % (11.5-14.5) 05/27/23 21:12 Plt Count 337 K/uL (130-400) 05/27/23 21:12 MPV 9.9 fL (9.4-12.4) 05/27/23 21:12 Immature Gran % (Auto) 0.9 % 05/27/23 21:12 Neut % (Auto) 72.8 % 05/27/23 21:12 Lymph % (Auto) 20.7 % 05/27/23 21:12 Dixie % (Auto) 4.1 % 05/27/23 21:12 Eos % (Auto) 0.9 % 05/27/23 21:12 Baso % (Auto) 0.6 % 05/27/23 21:12 Neut # (Auto) 17.09 K/uL (1.40-6.50) H 05/27/23 21:12 Lymph # (Auto) 4.87 K/uL (1.20-3.40) H 05/27/23 21:12 Dixie # (Auto) 0.97 K/uL (0.11-0.59) H 05/27/23 21:12 Eos # (Auto) 0.22 K/uL (0.00-0.50) 11/25/23 21:12 Baso # (Auto) 0.13 K/uL (0.00-0.20) 05/27/23 21:12 Immature Gran # (Auto) 0.21 K/uL (0.01-0.20) H 05/27/23 21:12 PT 10.9 Seconds (9.0-12.0) 05/27/23 21:12 INR 1.0 (0.9-1.1) 05/27/23 21:12 Sodium 137 mmol/L (136-145) 05/27/23 21:12 Potassium 3.7 mmol/L (3.5-5.1) 05/27/23 21:12 Chloride 99 mmol/L (98-107) 05/27/23 21:12 Carbon Dioxide 19 mmol/L (21-32) L 05/27/23 21:12 Anion Gap 19 (3-11) H 05/27/23 21:12 BUN 17 mg/dl (6-23) 05/27/23 21:12 Creatinine 1.30 mg/dl (0.6-1.4) 05/27/23 21:12 Est Cr Clr Drug Dosing 90.1 ml/min 05/27/23 21:12 Est GFR ( Amer) 78.6 ml/min 05/27/23 21:12 Est GFR (Non-Af Amer) 67.8 ml/min 05/27/23 21:12 BUN/Creatinine Ratio 13.1 (10-20) 05/27/23 21:12 Glucose 123 mg/dl (70-99(Fasting)) H 05/27/23 21:12 Calcium 9.0 mg/dl (8.6-10.3) 05/27/23 21:12 Magnesium 2.4 mg/dl (1.7-2.4) 05/27/23 21:12 Total Bilirubin 0.9 mg/dl (0.2-1.0) 05/27/23 21:12 AST 55 U/L (13-39) H 05/27/23 21:12 ALT 41 U/L (7-52) 05/27/23 21:12 Alkaline Phosphatase 83 U/L (34-104) 05/27/23 21:12 Total Creatine Kinase 678 U/L (30-223) H 05/27/23 21:12 Troponin I High Sens 176.1 pg/ml (0-20) H* D 05/27/23 23:20 Total Protein 7.1 gm/dl (6.0-8.3) 05/27/23 21:12 Albumin 4.5 gm/dl (3.4-5.0) 05/27/23 21:12 Globulin 2.6 gm/dl (2.5-4.0) 05/27/23 21:12 Albumin/Globulin Ratio 1.7 (0.9-2) 05/27/23 21:12 Lipase 27 U/L (11-82) 05/27/23 21: Urine Color Yellow 05/27/23 21: Urine Appearance Clear (Clear) 05/27/23 21: Urine pH 5.5 (4.5-7.5) 05/27/23 21: Ur Specific Wilson 1.019 (1.000-1.030) 05/27/23 21: Urine Protein 2+ (Negative) H 05/27/23 21: Urine Glucose (UA) 1+ (Negative) H 05/27/23 21:25 Urine Ketones Trace (Negative) H 05/27/23 21: Urine Blood 2+ (Negative) H 05/27/23 21: Urine Nitrite Negative (Negative) 05/27/23: Urine Bilirubin Negative (Negative) 05/27/23 21: Urine Urobilinogen Negative (Negative) 05/27/23 21:25 Ur Leukocyte Esterase Negative (Negative) 05/27/23 21:25 Urine WBC (Auto) 5-10 /hpf (0-5) H 05/27/23 21:25 Urine RBC (Auto) 5-10 /hpf (0-4) H 05/27/23 21: U Hyaline Cast (Auto) 10-30 /lpf (0-5) H 05/27/23 21: U Epithel Cells (Auto) >30 /lpf (0-5) H 05/27/23 21:25 Urine Bacteria (Auto) Negative (Negative) 05/27/23 21: Salicylates < 3.0 mg/dl (3.0-30) L 05/27/23 21:12 Urine Opiates Screen Pos (Neg) H 05/27/23 21:25 Ur Methadone, Qual Neg (Neg) 05/27/23 21:25 Acetaminophen < 3 ug/ml (10-30) L 05/27/23 21:12 Urine Barbiturates Neg (Neg) 05/27/23 21:25 Ur Phencyclidine (PCP) Neg (Neg) 05/27/23 21:25 U Amphetamin/Meth Scrn Neg (Neg) 05/27/23 21:25 MDMA (Ecstasy) Screen Neg (Neg) 05/27/23 21:25 U Benzodiazepines Scrn Neg (Neg) 05/27/23 21:25 Ur Cocaine Metabolite Neg (Neg) 05/27/23 21:25 U Marijuana (THC) Screen Neg (Neg) 05/27/23 21:25 Ethyl Alcohol mg/dL 162.9 mg/dl (<10.0) H 05/27/23 21:12 SARS-CoV-2, RNA, NAAT NEGATIVE (NEGATIVE) 05/27/23 21:46 Impressions Abdomen/Pelvis CT 05/27/23 21:19 Exam(s): CT ABDOMEN + PELVIS Without Contrast EXAM: CT Abdomen and Pelvis Without Intravenous Contrast CLINICAL HISTORY: Reason for exam: ams, ?fall. TECHNIQUE: Axial computed tomography images of the abdomen and pelvis without intravenous contrast. CTDI is 32.94 mGy and DLP is 1739.1 mGy-cm. Automated exposure control was utilized for the study. A dose lowering technique was utilized adhering to the principles of ALARA. COMPARISON: No relevant prior studies available. FINDINGS: Lung bases: Unremarkable. No mass. No consolidation. ABDOMEN: Liver: Unremarkable. Gallbladder and bile ducts: Prior cholecystectomy with mild CBD dilatation. Pancreas: Unremarkable. No ductal dilation. Spleen: Unremarkable. No splenomegaly. Adrenals: Unremarkable. No mass. Kidneys and ureters: Unremarkable. No obstructing stones. No hydronephrosis. Stomach and bowel: Unremarkable. No obstruction. No mucosal thickening. PELVIS: Appendix: No findings to suggest acute appendicitis. Bladder: Diaz catheter within the urinary bladder. No stones. Reproductive: Unremarkable as visualized. ABDOMEN and PELVIS: Intraperitoneal space: Unremarkable. No free air. No significant fluid collection. Bones/joints: Moderate degenerative changes at L4/L5 and L5/S1. No acute fracture. No dislocation. Soft tissues: Unremarkable. Vasculature: Unremarkable. No abdominal aortic aneurysm. Lymph nodes: Unremarkable. No enlarged lymph nodes. IMPRESSION: No acute findings in the abdomen or pelvis. Electronically signed by: Mary Ellen Mckenzie MD 05/28/23 00:[address] 05/27/23 21:19 Exam(s): CT C SPINE EXAM: CT Cervical Spine Without Intravenous Contrast CLINICAL HISTORY: Reason for exam: ams, ?fall. TECHNIQUE: Axial computed tomography images of the cervical spine without intravenous contrast. CTDI is 26.96 mGy and DLP is 765.4 mGy-cm. Automated exposure control was utilized for the study. A dose lowering technique was utilized adhering to the principles of ALARA. COMPARISON: No relevant prior studies available. FINDINGS: The vertebral body heights are maintained. The craniocervical junction is intact. The atlanto-dens interval is maintained. The dens is intact. There is no spondylolisthesis. Multilevel cervical spondylosis and degenerative disc disease. Straightening of the cervical lordosis. The unenhanced neck soft tissues are grossly unremarkable. The visualized lung apices are grossly clear. IMPRESSION: No acute fracture or subluxation of the cervical spine. Electronically signed by: Ronnie Sotelo MD 05/27/23 23:[address] 05/27/23 21:19 Exam(s): CT CHEST Without Contrast EXAM: CT Chest Without Intravenous Contrast CLINICAL HISTORY: Reason for exam: AMS, fall?. TECHNIQUE: Axial computed tomography images of the chest without intravenous contrast. CTDI is 32.94 mGy and DLP is 1739.1 mGy-cm. Automated exposure control was utilized for the study. A dose lowering technique was utilized adhering to the principles of ALARA. COMPARISON: No relevant prior studies available. FINDINGS: Lungs: Unremarkable. No mass. No consolidation. Pleural space: Unremarkable. No pneumothorax. No significant effusion. Heart: Unremarkable. No cardiomegaly. No significant pericardial effusion. No significant coronary artery calcifications. Thyroid: Left jessica-thyroidectomy. Bones/joints: Unremarkable. No acute fracture. No dislocation. Soft tissues: Unremarkable. Vasculature: Unremarkable. No thoracic aortic aneurysm. Lymph nodes: Unremarkable. No enlarged lymph nodes. Gallbladder and bile ducts: Cholecystectomy clips. IMPRESSION: No acute findings in the chest. Electronically signed by: Ronnie Sotelo MD 05/28/23 00:[address] 05/27/23 21:19 Exam(s): CT FACIAL Without Contrast EXAM: CT Maxillofacial Without Intravenous Contrast CLINICAL HISTORY: Reason for exam: ams, ?fall. TECHNIQUE: Axial computed tomography images of the face without intravenous contrast. CTDI is 36.55 mGy and DLP is 624.41 mGy-cm. Automated exposure control was utilized for the study. A dose lowering technique was utilized adhering to the principles of ALARA. COMPARISON: No relevant prior studies available. FINDINGS: The mandible is intact. Intact maxillary alveolus. The orbital rims and floors are intact. The intraorbital contents are grossly unremarkable. Mildly depressed fracture of the anterior wall of the left maxillary sinus. Nondisplaced fracture of the posterior wall of the left maxillary sinus. Nondisplaced fracture of the left zygomatic arch. Intact nasal bones, nasal septum, and maxillary spines. Paranasal sinus mucosal thickening. IMPRESSION: Mildly depressed fracture of the anterior wall of the left maxillary sinus. Nondisplaced fracture of the posterior wall of the left maxillary sinus. Nondisplaced fracture of the left zygomatic arch. Electronically signed by: Ronnie Sotelo MD 05/27/23 23:[address] 05/27/23 21:19 Exam(s): CT HEAD Without Contrast EXAM: CT Head Without Intravenous Contrast CLINICAL HISTORY: Reason for exam: ams. TECHNIQUE: Axial computed tomography images of the head/brain without intravenous contrast. CTDI is 36.55 mGy and DLP is 624.41 mGy-cm. Automated exposure control was utilized for the study. A dose lowering technique was utilized adhering to the principles of ALARA. COMPARISON: No relevant prior studies available. FINDINGS: No acute intracranial hemorrhage. No midline shift or mass effect. The territorial coates-white matter differentiation is maintained throughout. The ventricles and sulci are commensurate with age. The visualized orbits appear grossly unremarkable. The calvarium is intact. The visualized paranasal sinuses and mastoid air cells are grossly clear. Left-sided facial bone fractures, correlate with concomitant maxillofacial CT scan. IMPRESSION: No acute intracranial hemorrhage, midline shift, or mass effect. Left-sided facial bone fractures, correlate with concomitant maxillofacial CT scan. Electronically signed by: Ronnie Sotelo MD 05/27/23 23:45 PM ECG Additional Comments: ECG. Sinus rhythm with first-degree AV block with a rate of 93. QTc 445 Code Status & VTE Plan VTE Prophylaxis Plan VTE Prophylaxis will be ordered: Yes
[2023-05-28] MEDS ORDERED: KETOROLAC TROMETHAMINE 15 MG/ML VIAL IV ONE (05:43)
[2023-05-28] MEDS ORDERED: THIAMINE HCL 100 MG in SYRINGE 9 ML IV STA (06:08)
[2023-05-28] MEDS ORDERED: Ativan IV Alcohol Withdrawal--Active Protocol IV PRN (06:23)
[2023-05-28] MEDS ORDERED: LORazepam 3 MG in SYRINGE 1.5 ML IV PRN (06:23)
[2023-05-28] MEDS ORDERED: GABAPENTIN 600 MG TAB PO ONE (06:23)
[2023-05-28] MEDS ORDERED: LORazepam 1 MG in SYRINGE 0.5 ML IV PRN (06:23)
[2023-05-28] MEDS ORDERED: NITROGLYCERIN SL 0.4 MG/TAB TAB SL PRN (06:23)
[2023-05-28] MEDS ORDERED: LORazepam 2 MG in SYRINGE 1 ML IV PRN (06:23)
[2023-05-28] MEDS ORDERED: GABAPENTIN 1200MG ALCOHOL WITHDRAWAL LOAD PO STA (06:23)
[2023-05-28] MEDS: SODIUM CHLORIDE 0.9% 1,000 ML IV SCH ×4 (06:36→23:48)
[2023-05-28 07:45] LABS: Basophils # (auto) 0.03 K/uL (0.00-0.20); Basophils % (auto) 0.3 %; Eosinophils # (auto) 0.01 K/uL (0.00-0.50); Eosinophils % (auto) 0.1 %; Hematocrit (blood only) 40.3 % (42.0-52.0); Hemoglobin 13.8 g/dl (14.0-18.0); Immature Granulocytes # (auto) 0.03 K/uL (0.01-0.20); Immature Granulocytes % (auto) 0.3 %; Lymphocytes # (auto) 0.91 K/uL (1.20-3.40); Lymphocytes % (auto) 7.9 %; Mean Corpuscular Hemoglobin 29.7 pg (25.0-34.0); Mean Corpuscular Hgb Conc 34.2 g/dL (32.0-36.0); Mean Corpuscular Volume 86.9 fL (80.0-100.0); Mean Platelet Volume 9.5 fL (9.4-12.4); Monocytes # (auto) 0.54 K/uL (0.11-0.59); Monocytes % (auto) 4.7 %; Neutrophils # (auto) 9.95 K/uL (1.40-6.50); Neutrophils % (auto) 86.7 %; Platelet Count 230 K/uL (130-400); RDW Coefficient of Variation 12.5 % (11.5-14.5); RDW Standard Deviation 39.4 fL (36.4-46.3); Red Blood Count 4.64 M/uL (4.70-6.10); White Blood Count 11.47 K/ul (4.8-10.8)
--- NOTE | 2023-05-28 08:00 | Electrocardiogram Report ---
Test Reason : Blood Pressure : / mmHG Vent. Rate : 093 BPM Atrial Rate : 093 BPM P-R Int : 232 ms QRS Dur : 086 ms QT Int : 358 ms P-R-T Axes : 042 054 019 degrees QTc Int : 445 ms Sinus rhythm with 1st degree A-V block Otherwise normal ECG No previous ECGs available Confirmed by Ruben Rice ([id number]) on 05/28/2023 8:00:27 AM Referred By: REFERRED SELF Confirmed By:Ruben Rice
[2023-05-28 08:09] LABS: BUN Creatinine Ratio 17.6 (10-20); Calcium 8.5 mg/dl (8.6-10.3); Creatinine Clr Calc Pharmacy 158.3 ml/min; Est GFR (African American) 132.8 ml/min; Est GFR (Non-African American) 114.6 ml/min; Magnesium 2.1 mg/dl (1.7-2.4)
[2023-05-28] MEDS: MIRTAZAPINE TAB 15 MG TAB PO SCH (08:30)
[2023-05-28] MEDS: THIAMINE HCL 100 MG TAB PO SCH (08:30)
[2023-05-28] MEDS: FOLIC ACID 1 MG TAB PO SCH (08:30)
[2023-05-28] MEDS: buprenorphine HCL 8 MG SUBL SL SCH (08:33)
[2023-05-28] MEDS: GABAPENTIN 600 MG TAB PO SCH ×2 (13:47→18:15)
--- NOTE | 2023-05-28 14:41 | Psychiatric Consultation ---
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 All I can say with much confidence is that he's very sleepy now and seems to have had a very bad day yesterday. He was certainly intoxicated on alcohol at presentation and I'll take him at his word that he'd used psychedelic mushrooms. He says he's never had alcohol withdrawal symptoms and that yesterday's 12 beers is the most he's used, but I think it's very reasonable to question whether he's able to provide a reliable history. His weird and aggressive behavior might very well be a result of the psychedelic mushrooms and alcohol, but there's no way to tell. At this point he's not exhibiting such behaviors. I have no way to guess whether he requires or would benefit from psychiatric hospitalization since there are highly plausible nonpsychiatric causes that could explain his presentation, but we will probably understand this better as he kevin up. If he does actually have an active arrest warrant, then psychiatric hospitalization won't be an option. Similarly, I have no way to guess whether he requires any psychiatric medication in the usual course of things, but his initial presentation strongly supports that he needed something at the time to reduce risk of disorganized behavior and, especially with the use of a hallucinogen, the use of ketamine such as he was given seems appropriate. He might benefit from having a PRN antipsychotic available. Overall I spent a total of 87 minutes on the floor for this consultation assessment including review of chart records, review of test results, direct evaluation of the patient [id number], risk assessment, discussion with the psychiatric liaison nurse, and documentation in the electronic health record. (1) Altered mental status: Altered mental status type: delirium Qualified Code(s): R41.0 - Disorientation, unspecified Plan Recommend: * olanzapine 10 mg PO or IM Q6 Hr PRN psychosis or ananya * if pt remains sedated, consider accelerating the gabapentin taper Psych History Identifying Data DORIS GONZALEZ is a 43-year-old M with a history of substance use, admitted on 05/27/2023 for altered mental status and rhabdomyolysis. Consult is by the hospitalist service for "agitation, drug abuse,abnormal behav". Chief Complaint "There's not much going on lately". History of Present Illness As part of a thorough review of the available medical records, I have read and confirmed the following note by the ED physician: "Patient is a approximately 43-year-old gentleman unknown significant history presenting via ambulance today for altered mental status. Patient upon arrival is acutely agitated being held down by EMS and police. Received call prior to arrival from EMS. Report the patient evidently walked down the street stabbed his dog to and then collapsed to the ground. For fire he was minimally responsive received 4 mg of Narcan. After this the patient became acutely agitated. Received 4 mg of benzodiazepine prior to arrival with limited improvement and he was in physical hold in handcuffs due to his acute agitation. Swearing out to the room and trying to jump up off the bed. Swears at me and does not provide any significant history. He is covered in blood but EMS states this is related to his dog that he stabbed to prior to arrival. There is report the patient may have had alcohol and possibly mushroom or other drugs involved. Patient again unable provide me additional history. He is struggling being held down with backboard in place. Questionable if he had fallen today. Did later receive a call from EMS that wrong medication administered to the patient and he did not receive Ativan prior to arrival but actually 4 mg of Dilaudid IM. May explain the lack of effect for the patient and his agitation." and the following note by the hospitalist: "43-year-old male history of insomnia as per patient was brought in because of altered mental status. Seems patient walked on the street and stabbed his dog to and then collapsed to the ground. EMS gave him 4 mg of Narcan after that patient became acutely agitated. Then was given 4 mg of benzodiazepine and is brought in physical hold in hand cuffs due to acute agitation. In the ER he also was very agitated. He was given couple of doses of ketamine in the ER and placed in restraints.Imaging studies are okay. Patient currently alert and awake and oriented. Patient states he drank 12 beers and had mushroom for drugs. He states he did not do mushrooms for many years. Not doing any other drugs as per patient. He is on buprenorphine as is used to do kratom as per patient." Review of the medical record reveals no previous or outside psychiatric records. Pt denies any history of psychiatric admission or outpatient treatment. He is on buprenorphine (without naloxone) so presumably has had at least some sort of [facility] treatment but isn't able to tell me anything useful about that. Review of pertinent labs reveals they are significant for WBC of 23.49 K/uL (which has dropped to 11.47 K/uL), CK of 678 U/L (which has increased to 6697 U/L), troponin of 176.1 pg/mL (which most recently is 213.6 pg/mL). A urine toxicology screen was positive for metabolites of opioids (which is uninformative since he was given hydromorphone in the field). BAL was 162.9. History beyond that documented above is very limited due to pt's lack of cooperation on presentation, and there appear to be some things reported orally that might be accurate or might not, with no clear means right now to reduce ambiguity. On my exam, pt is very drowsy (drops off to sleep several times during the asse ssment). He is cooperative but evidences only palimpsest memories for the events leading to admission. He is oriented to person, "the hospital", and partially to time (asks if it's Monday, can tell me month and year but not date). When I ask "what's been going on?" he responds "not much". When I ask what happened that led to his being here he says he'd been hoping I could tell him. He did voluntee r that he'd had to kill his [place] bulldog (not a pit bull) because "she must've let him out" and the dog ran to attack him. He says the dog had bitten him numerous times in the past for reasons he never understood and that "this time it looked like he wasn't going to stop". Pt acknowledges that he "drank a 12-pack" yesterday, which is about double what he might usually drink. Insists he does not drink daily and says he's never had any sort of withdrawal symptoms in the past. He says he "might have done some magic mushrooms". He doesn't seem to have any recall of anything else from yesterday, including having been arrested and brought to the ED. Staff caring for him (who've been on-shift for 4 hours) tell me he's been quiet. I've been told that he may have an arrest warrant related to yesterday's events, but that's at least 3rd-hand information and I can't find it documented anywhere. Past Psychiatric History Previous Psych History: denies Previous Psych Admissions: denies Allergies Allergy/AdvReac Type Severity Reaction Status Date / Time No Known Allergies Allergy Unverified 05/28/23 00:24 Home Medications Medication Instructions Recorded Confirmed Type buprenorphine HCl 8 mg sublingual 16 mg sublingual DAILY 05/28/23 05/28/23 History tablet mirtazapine 15 mg tablet 15 mg PO DAILY 05/28/23 05/28/23 History sildenafil 100 mg tablet 50 - 100 mg PO DIRECTED 05/28/23 05/28/23 History Patient History Social History Smoking Status: Current some day smoker Tobacco Type: Cigarettes Hx Alcohol Use: Yes Alcohol type: beer Preferred Language: Cypriot Communication Ability: Effective Vice President Quality Assurance Required: No Beliefs That Will Affect Care: None Current Living Situation: Significant Other Feels Safe at Home: Yes Physical Exam Psychiatric: Orientation: oriented to person and cooperative; + not alert (drowsy), + not oriented to place ("hospital" only) and + not oriented to time (month and year only) Apperance: appropriately dressed and appropriately groomed Eye Contact: + poor eye contact (has trouble keeping eyes open) Motor Behavior: no abnormal motor movements Speech: + abnormal rate/rhythm/volume of speech (slow, brief, very quiet) Affect: + blunted affect Mood: no depressed mood (denies) and no anxious mood (denies) Thought Process: + tangential thought process can't be determined with pt's low level of alertness Suicidal Thoughts: denies suicidal thoughts Homicidal Thoughts: denies homicidal thoughts Hallucinations: no auditory hallucinations and no visual h allucinations Cognition: + recent memory not intact and + attention not intact Estimated Intelligence: average estimated intelligence Insight: + severely impaired insight Judgment: + severely impaired judgement Vital Signs (Past 24 Hours): Last Vital Signs Pulse 79 05/28/23 10:00 Resp 14 05/28/23 10:00 BP 141/82 H 05/28/23 10:00 Pulse Ox 96 05/28/23 10:00 O2 Del Method Room Air 05/28/23 10:00 O2 Flow Rate 4 05/27/23 22:00 Review of Systems Psychiatric: as per Subjective / HPI pt is unable to participate in a useful ROS Results & Data (PSY) Medications Administered Buprenorphine HCl (Buprenorphine Hcl 8 Mg Subl) 16 mg SL DAILY KENAN Stop: 06/27/23 08:59 Last Admin: 05/28/23 08:33 Dose: 16 mg Documented By: GEGE Folic Acid (Folic Acid 1 Mg Tab) 1 mg PO QAM KENAN Stop: 06/27/23 08:59 Last Admin: 05/28/23 08:30 Dose: 1 mg Documented By: GEGE Gabapentin (Gabapentin 600 Mg Tab) 600 mg PO Q6H KENAN Stop: 05/28/23 18:01 Last Admin: 05/28/23 13:47 Dose: 600 mg Documented By: RONNY Sodium Chloride (Nss) 1,000 mls @ 200 mls/hr IV .Q5H KENAN Stop: 06/27/23 06:22 Last Admin: 05/28/23 13:02 Dose: 200 mls/hr Documented By: Infusion: 05/28/23 13:02 Dose: Infused Documented By: Infusion: 05/28/23 12:06 Dose: 200 mls/hr Documented By: Admin: 05/28/23 06:36 Dose: 150 mls/hr Documented By: JONATHAN Mirtazapine (Mirtazapine Tab 15 Mg Tab) 15 mg PO DAILY KENAN Stop: 06/27/23 08:59 Last Admin: 05/28/23 08:30 Dose: 15 mg Documented By: GEGE Thiamine HCl (Thiamine Hcl 100 Mg Tab) 100 mg PO QAM KENAN Stop: 06/27/23 08:59 Last Admin: 05/28/23 08:30 Dose: 100 mg Documented By: GEGE Coding Level of Care Code 79[address] [facility] Intl Hosp Care Lvl 3 Diagnoses Altered mental status R41.0 Altered mental status type: delirium Time Spent (min) 87
--- NOTE | 2023-05-28 15:13 | Communication Note ---
Date of Service: May 28, 2023 Patient seen and examined at bedside. He is alert oriented x 3; not agitated or aggressive. Patient reports pain on his face and right hip. CK level uptrending Increase the fluid to 200 cc/h Awaiting psych evaluation Oral surgery also consulted for evaluation of facial fracture.
[2023-05-29] MEDS ORDERED: KETOROLAC TROMETHAMINE 15 MG/ML VIAL IV ONE (00:01)
[2023-05-29] MEDS: GABAPENTIN 600 MG TAB PO SCH ×2 (06:28→13:26)
[2023-05-29] MEDS: SODIUM CHLORIDE 0.9% 1,000 ML IV SCH ×2 (06:28→11:31)
[2023-05-29 07:32] LABS: Basophils # (auto) 0.05 K/uL (0.00-0.20); Basophils % (auto) 0.6 %; Eosinophils # (auto) 0.11 K/uL (0.00-0.50); Eosinophils % (auto) 1.3 %; Hematocrit (blood only) 37.3 % (42.0-52.0); Hemoglobin 12.8 g/dl (14.0-18.0); Immature Granulocytes # (auto) 0.02 K/uL (0.01-0.20); Immature Granulocytes % (auto) 0.2 %; Lymphocytes # (auto) 1.81 K/uL (1.20-3.40); Lymphocytes % (auto) 21.7 %; Mean Corpuscular Hemoglobin 30.1 pg (25.0-34.0); Mean Corpuscular Hgb Conc 34.3 g/dL (32.0-36.0); Mean Corpuscular Volume 87.8 fL (80.0-100.0); Mean Platelet Volume 9.6 fL (9.4-12.4); Monocytes # (auto) 0.44 K/uL (0.11-0.59); Monocytes % (auto) 5.3 %; Neutrophils # (auto) 5.91 K/uL (1.40-6.50); Neutrophils % (auto) 70.9 %; Platelet Count 209 K/uL (130-400); RDW Coefficient of Variation 12.9 % (11.5-14.5); RDW Standard Deviation 41.2 fL (36.4-46.3); Red Blood Count 4.25 M/uL (4.70-6.10); White Blood Count 8.34 K/ul (4.8-10.8)
[2023-05-29 08:10] LABS: Albumin Globulin Ratio 1.6 (0.9-2); Albumin Level 3.5 gm/dl (3.4-5.0); BUN Creatinine Ratio 20.5 (10-20); Bilirubin,Total 1.4 mg/dl (0.2-1.0); Calcium 8.2 mg/dl (8.6-10.3); Creatinine Clr Calc Pharmacy 160.4 ml/min; Est GFR (African American) 133.5 ml/min; Est GFR (Non-African American) 115.2 ml/min; Globulin 2.2 gm/dl (2.5-4.0); Potassium 3.8 mmol/L (3.5-5.1); Total Protein 5.7 gm/dl (6.0-8.3)
[2023-05-29] MEDS: buprenorphine HCL 8 MG SUBL SL SCH (09:03)
[2023-05-29] MEDS: MIRTAZAPINE TAB 15 MG TAB PO SCH (09:03)
[2023-05-29] MEDS: THIAMINE HCL 100 MG TAB PO SCH (09:03)
[2023-05-29] MEDS: FOLIC ACID 1 MG TAB PO SCH (09:03)
[2023-05-29] MEDS ORDERED: ACETAMINOPHEN 500 MG TAB PO PRN (09:31)
[2023-05-29] MEDS ORDERED: PANTOprazole 40 MG TAB PO SCH (09:45)
[2023-05-29] MEDS: KETOROLAC TROMETHAMINE 15 MG/ML VIAL IV PRN ×2 (09:54→14:44)
--- NOTE | 2023-05-29 14:11 | Oral/Maxillofacial Consult ---
Date of Consultation May 29, 2023 History of Present Illness Attending Physician: Salomón Devlin MD History of Present Illness I was asked to see Mr. De Jesus and address the need for any surgical intervention regarding his facial fractures. He has an excellent range of oral opening, minimal swelling, no paraesthesia noted. He did blow his nose yesterday and his bridge of his nose and right eye got swollen --this is due to he sinus fractures and represents air which will resolve over time. The fractured left ZMOC fracture is minimally displaced and is not causing any functional or cosmetic deformities. he sinus fractures (left) do not present any function issues. No congestion, bleeding, good airflow noted. No facial depressions noted, oral ROM excellent PERRLA bilateral, EOM=all WNL. From a surgical point of view no surgical intervention for these non displaced fractures are needed. Exam(s): CT FACIAL Without Contrast CLINICAL HISTORY: patient can not recall how the injuries occurred FINDINGS: The mandible is intact. Intact maxillary alveolus. The orbital rims and floors are intact. The intraorbital contents are grossly unremarkable. Intact nasal bones, nasal septum, and maxillary spines. Paranasal sinus mucosal thickening Mildly depressed fracture of the anterior wall of the left maxillary sinus. Nondisplaced fracture of the posterior wall of the left maxillary sinus. Nondisplaced fracture of the left zygomatic arch. IMPRESSION: Mildly depressed fracture of the anterior wall of the left maxillary sinus. Nondisplaced fracture of the posterior wall of the left maxillary sinus. Nondisplaced fracture of the left zygomatic arch. Allergies Allergy/AdvReac Type Severity Reaction Status Date / Time No Known Allergies Allergy Verified 05/29/23 07:44 Home Medications Medication Instructions Recorded Confirmed Type naloxone 4 mg/actuation nasal 1 sprays intranasal Q2M PRN opioid 10/17/18 04/25/19 Rx spray (Narcan) overdose #2 ea buprenorphine HCl 8 mg sublingual 16 mg sublingual DAILY 05/28/23 05/28/23 History tablet mirtazapine 15 mg tablet 15 mg PO DAILY 05/28/23 05/28/23 History sildenafil 100 mg tablet 50 - 100 mg PO DIRECTED 05/28/23 05/28/23 History Patient History Surgical History (System 05/29/23 @ 07:44 by Paula Sy) Hx of cholecystectomy Family History (System 05/29/23 @ 07:44 by Paula Sy) Mother Seizure Social History (System 05/29/23 @ 07:44 by Paula Sy) Smoking Status: Current some day smoker Tobacco Type: Cigarettes Hx Alcohol Use: Yes Alcohol type: beer Preferred Language: Spanish Communication Ability: Effective Hub Bander Required: No Beliefs That Will Affect Care: None Current Living Situation: Significant Other Feels Safe at Home: Yes Results & Data Vital Signs (Past 12 Hours) Vital Signs Pulse Pulse Resp BP Pulse Ox Pulse Ox O2 Del Method 05/29/23 11:04 80 16 94 Room Air 05/29/23 07:56 70 05/29/23 07:00 95 05/29/23 02:43 Room Air 05/29/23 02:17 83 18 142/85 H 91 Room Air O2 Del Method 05/29/23 11:04 05/29/23 07:56 05/29/23 07:00 Room Air 05/29/23 02:43 05/29/23 02:17 PG Care Time/CCT Total # of Minutes Spent Total Time Spent with Patient: Total time spent is greater than 50% in coordination of care (as documented) at patient's floor/unit and/or counseling patient: Coding Level of Care Code 30164 OFFICE CONSULT LVL
--- NOTE | 2023-05-29 15:54 | Discharge Summary ---
Date of Service May 29, 2023 Admission HPI Per Admitting Provider 43-year-old male history of insomnia as per patient was brought in because of altered mental status. Seems patient walked on the street and stabbed his dog to and then collapsed to the ground. EMS gave him 4 mg of Narcan after that patient became acutely agitated. Then was given 4 mg of benzodiazepine and is brought in physical hold in hand cuffs due to acute agitation. In the ER he also was very agitated. He was given couple of doses of ketamine in the ER and placed in restraints.Imaging studies are okay. Patient currently alert and awake and oriented. Patient states he drank 12 beers and had mushroom for drugs. He states he did not do mushrooms for many years. Not doing any other drugs as per patient. He is on buprenorphine as is used to do kratom as per patient. Says his Diaz catheter is irritating and wants to take it out. Denies any headache currently. Vision is okay. No cough. No chest pain or shortness of breath. No nausea. No abdominal pain. Currently resting comfortably. Past medical history as mentioned above Past surgical history. Denies any surgeries Social history. Denies smoking. Says drinks alcohol couple of times a week. States once in a while uses drugs like mushrooms Family history. Denies any family history. Admission Exam Per Admitting Provider General- Not in acute distress Head- atraumatic Eyes- PERRL. ENT- oropharynx clear Neck- supple, no JVD. Lungs- clear to auscultation, no wheezing or crackles. Heart- regular rhythm; no murmur, no gallop. Abdomen- normal bowel sounds, soft, nontender, no distension. Extremities- no pretibial edema, no erythema seen. Neuro- alert, oriented x 3; PERRL,no facial palsy; no dysarthria; obeys commands , moves extremities. Skin- warm & dry Principal Diagnosis Alcohol intoxication Facial fractures Rhabdomyolysis Discharge Exam Constitutional: WD/WN, vitals as above, NAD, sitting up in bed, pleasant, conversing easily Respiratory: Bilateral vesicular breath sound. Cardiovascular: RRR, no murmur, no edema Vessels: no JVD or carotid bruit Chest: normal inspection of chest Abdomen: normal bowel sounds, soft, nontender, no hepatosplenomegaly Musculoskeletal: no cyanosis or clubbing, extremities motor strength 5/5 Skin: no rashes, warm and dry normal turgor Neurologic: PERRL, EOMI, accommodation nl, no face palsy, no dysarthria CN's II- XI intact bilaterally and moves all extremities Psychiatric: A+Ox3, euthymic affect Discharge Data Allergies Allergy/AdvReac Type Severity Reaction Status Date / Time No Known Allergies Allergy Verified 05/29/23 07:44 Consultations 05/27/23 23:19 ED Decision to Admit Stat 05/28/23 06:23 Consult Psychiatry Routine 05/28/23 15:03 Consult Oromaxillofacial Surgery Routine Ordered Studies 05/27/23 21:19 CT abd pelvis wo con Stat CT cervical spine wo con Stat CT chest diagnostic wo con Stat CT face [CT facial bones wo con] Stat CT head/brain wo con Stat Hospital Course (1) Alcohol intoxication: (2) Altered mental status: (3) Facial fracture: (4) Elevated troponin I level: Plan 43-year-old male history of insomnia as per patient was brought in because of altered mental status. Reported history of stabbing his dog to . Patient was brought to the ED by the police. He was intoxicated and admitted to using hallucinogenic mushrooms His blood alcohol level was elevated. He was found to have facial fractures. He was also found to have elevated troponin and elevated CK consistent with rhabdomyolysis. He was admitted to telemetry floor. Aggressive hydration was done for rhabdomyolysis. Patient mentation improved throughout the hospitalization. Oral surgery was consulted for comanagement for facial fractures; no surgery was required. His CK level down trended. Echocardiogram showed EF of 55 to 60%; no wall motion abnormality. Patient was discharged to police. Please note the above document was generated using voice recognition software. It may contain grammatical, syntax or spelling errors. Any formal questions or concerns about the content, text or information contained within the body of this dictation should be directly addressed to the provider for clarification Total Time Total Time Spent Total Time Spent (In Minutes): 35 Total Time Includes: Examination of the Patient, Discharge Planning, Medication Reconciliation, Communication With Other Providers and Other Discharge Plan Discharge Items Patient Disposition: Home - Self-Care Reason For Visit: AGITATION, ALCOHOL AND DRUG ABUSE Discharge Diagnosis: Rhabdomyolysis Alcohol intoxication Facial fractures Activity: Resume your previous activity Non-emergency contact: Primary Care Provider Call non-emergency contact if: you have any medication questions and your symptoms worsen Follow-up/Referrals: PCP,NO [Primary Care Provider] - Diet: Regular Addtl Attending Provider Instructions: You were admitted to the hospital due to episode of altered mental status. You have facial fracture for which you are evaluated by surgeon. You do not need any surgeries. For pain, take Tylenol 500 mg as needed every 8 hours and ibuprofen 600 mg every 8 hours as needed. While you are on ibuprofen, you can take omeprazole 20 mg once a day to decrease discomfort. All the medication are [id number]. Prescriptions are also sent to the pharmacy Pending Studies at Discharge: No Stand-Alone Forms: My [facility], Smoking Cessation Medications and DC Order Prescriptions: New acetaminophen [Tylenol Extra Strength] 500 mg Tablet 500 mg PO Q8H PRN (Reason: pain) Qty: 60 0RF ibuprofen 600 mg tablet 600 mg PO Q8H PRN (Reason: pain) Qty: 20 0RF omeprazole 20 mg capsule,delayed release(DR/EC) 20 mg PO DAILY Qty: 20 0RF Continued Narcan 4 mg/actuation spray,non-aerosol 1 sprays INTNAS Q2M PRN (Reason: opioid overdose) Qty: 2 0RF sildenafil 100 mg tablet 50 - 100 mg PO DIRECTED mirtazapine 15 mg tablet 15 mg PO DAILY buprenorphine HCl 8 mg tablet, sublingual 16 mg SUBLINGUAL DAILY Discharge Orders: Discharge Order (Routine); Ordered 05/29/23 Ordered By: Salomón Devlin Admission Data Admit Date/Time: 05/28/23 05:31 Attending Provider: Salomón Devlin Admit Provider: Sharif Gurrola Primary Care Provider: PCP,NO Other Providers: Sharif Gurrola; Yanely Turner; Alejandra Gunter; Lazaro Lindsay; Pedro Valentin Other Interventions: Discharge Summary Assessment (RN) Last Done: 05/29/23 14:57
[2023-05-30] MEDS ORDERED: GABAPENTIN 600 MG TAB PO SCH (10:00)
[2023-05-31 08:23] LABS: Codeine Urine NEGATIVE ng/mL (<50); Hydrocodone Urine NEGATIVE ng/mL (<50); Hydromor Urine 548 ng/mL (<50); Morphine Urine NEGATIVE ng/mL (<50); Norhydrocodone Conf Ur NEGATIVE ng/mL (<50); Noroxycodone Urine NEGATIVE ng/mL (<50); Oxycodone Urine NEGATIVE ng/mL (<50); Oxymorph Urine NEGATIVE ng/mL (<50)
[2023-05-31] MEDS ORDERED: GABAPENTIN 600 MG TAB PO SCH (22:00)
== END 2023-05-29 14:57 | DRG 897 ==
LOC: EDBD → ED 21:07 → EDINP 05-28 05:31 → MERGE 05-28 05:31 → EDINP 05-28 06:25